=== PATIENT | female | born 1960 | race Caucasian/White ===

== ENCOUNTER → 2017-02-15 | Outpatient (CLI) | payer BC | LOC: COL.RAD 07:41 | DX: R13.19 Other dysphagia (principal); K21.9 Gastro-esophageal reflux disease without esophagitis ==

== ENCOUNTER → 2017-02-19 | Outpatient (CLI) | payer BC | LOC: MC.RAD 10:59 | DX: Z12.31 Encounter for screening mammogram for malignant neoplasm of breast (principal) ==